=== PATIENT | female | born 1960 | race Caucasian/White ===

== ENCOUNTER → 2019-10-07 | Day surgery (SDC) | payer BC ==
[~2019-10-07] MED LIST: Lactated Ringers 1,000 ML IV SCH; Propofol 200 MG/20 ML SDV IV ONE
[2019-10-07 11:43] VITALS: BP 124/65; PULSE 67
--- NOTE | 2019-10-07 12:20 | OR ---
DATE OF OPERATION: 10/07/2019 PREOPERATIVE DIAGNOSIS: BRIGHT RED BLOOD PER RECTUM. POSTOPERATIVE DIAGNOSIS: INTERNAL HEMORRHOIDS. SURGEON: Winston Rose MD PROCEDURE: DIAGNOSTIC COLONOSCOPY WITH FORCEPS POLYP REMOVAL X2. ANESTHESIA: MAC. COMPLICATIONS: None. SPECIMEN: Two small sessile polyps, rectosigmoid junction. FINDINGS: 1. Full-length colonoscopy. 2. Markedly tortuous colon. 3. Sessile polyps x2, rectosigmoid junction, less than 3 mm. 4. Prominent internal hemorrhoids. RECOMMENDATIONS: Medical followup with Razia Coley. Routine colonoscopy again in 5 years. INDICATIONS: The patient apparently had some episodes of bright red blood per rectum. Has no other GI symptoms. Razia Coley sent her for diagnostic colonoscopy. DESCRIPTION OF PROCEDURE: The patient was prepped and draped, placed in the left lateral decubitus position. A well-lubricated Olympus colonoscope was inserted and with some degree of difficulty advanced quite near the cecum. The patient had markedly redundant and tortuous colon, especially through the transverse area. We were able to get past the hepatic flexure, down deep near the cecum. We could not visualize the appendiceal orifice region, but we did visualize and palpate the light deep in the right lower quadrant. Cecal pouch, however, was folded over, and we could not open it. The bowel prep was excellent. Upon withdrawal of the scope, the right transverse and descending colons were completely benign. Throughout the sigmoid area, there were no polyps, masses, ulcerations, or bleeding sites. No vascular abnormalities or signs of colitis. There were no diverticula. In the distal rectosigmoid junction, the patient had 2 small sessile polyps, each 3 mm or less. Both removed with forceps in their entirety. The rest of the rectal vault was unremarkable. Retroflexion showed prominent internal hemorrhoids in the perianal region with some actual inflammation, no active bleeding. Air was then suctioned and scope removed without complication. MYRA/MEENA /[id number]
== END ==
LOC: CC.SDS 09:40
PROVIDERS: ATTEND Family Medicine
DX: K63.5 Polyp of colon (principal); K64.8 Other hemorrhoids; K63.89 Other specified diseases of intestine; K62.5 Hemorrhage of anus and rectum; I10 Essential (primary) hypertension; E78.5 Hyperlipidemia, unspecified; F41.9 Anxiety disorder, unspecified; F32.9 Major depressive disorder, single episode, unspecified; G50.9 Disorder of trigeminal nerve, unspecified; M17.10 Unilateral primary osteoarthritis, unspecified knee; M48.061 Spinal stenosis, lumbar region without neurogenic claudication; M54.10 Radiculopathy, site unspecified; Z79.82 Long term (current) use of aspirin; Z79.899 Other long term (current) drug therapy
CPT/HCPCS: 45380; J2704; J7120